=== PATIENT | male | born 1955 | race Caucasian/White ===

== ENCOUNTER 2017-05-11 07:55 | Outpatient (CLI) | payer BC ==
[2017-05-11 12:28] LABS: ALBUMIN/GLOBULIN RATIO 1.9 (1.0-2.2); BUN - BLOOD UREA NITROGEN 27 mg/dL (6-20); CALCIUM 9.9 mg/dL (8.5-10.3); CARBON DIOXIDE - CO2 27 mmol/L (21-32); CHLORIDE 105 mmol/L (101-111); CHOL/HDL RATIO 4.4 (<5.0); CHOLESTEROL 245 mg/dL; CREATININE 1.2 mg/dL (0.6-1.2); GFR - MDRD 61 (>89); GLUCOSE 110 mg/dL (70-100); HDL CHOLESTEROL 56 mg/dL; LDL/HDL RATIO 3.1 (<3.6); POTASSIUM 4.4 mmol/L (3.5-5.0); SODIUM 138 mmol/L (135-145); TOTAL PROTEIN 7.8 g/dL (6.7-8.2); TRIGLYCERIDES 91 mg/dL; VLDL CHOLESTEROL 18 mg/dL
== END 2017-05-11 07:56 | disposition home or self-care (01) ==
LOC: LAB.F 07:55
PROVIDERS: ATTEND Internal Medicine
DX: I10 Essential (primary) hypertension (principal); E78.00 Pure hypercholesterolemia, unspecified
CPT/HCPCS: 36415; 80053; 80061

== ENCOUNTER 2017-06-01 07:53 | Day surgery (SDC) | payer BC ==
[2017-06-01] MEDS ORDERED: LACTATED RINGERS 1,000 ML IV ONE (08:02)
[2017-06-01] MEDS ORDERED: fentaNYL 100 MCG/2 ML VIAL IVP ONE (09:09)
[2017-06-01] MEDS ORDERED: MIDAZOLAM 2 MG/2 ML VIAL IVP ONE (09:09)
[2017-06-01 10:10] VITALS: BP 123/83
== END 2017-06-01 07:54 | disposition home or self-care (01) ==
LOC: SDS 07:53
PROVIDERS: ATTEND Surgery
PROC: 0DJD8ZZ Inspection of Lower Intestinal Tract, Via Natural or Artificial Opening Endoscopic (ICD-10-PCS; principal; 2017-06-01 09:15)
DX: Z12.11 Encounter for screening for malignant neoplasm of colon (principal); K57.30 Diverticulosis of large intestine without perforation or abscess without bleeding; Z86.010 Personal history of colon polyps; Z87.891 Personal history of nicotine dependence; Z88.8 Allergy status to other drugs, medicaments and biological substances
CPT/HCPCS: 45378; J7120

== ENCOUNTER 2017-07-12 09:10 | Outpatient (CLI) | payer BC ==
[2017-07-12 19:08] LABS: CHOL/HDL RATIO 3.6 (<5.0); CHOLESTEROL 190 mg/dL; HDL CHOLESTEROL 53 mg/dL; LDL/HDL RATIO 1.9 (<3.6); TRIGLYCERIDES 170 mg/dL; VLDL CHOLESTEROL 34 mg/dL
== END 2017-07-12 09:11 | disposition home or self-care (01) ==
LOC: LAB.F 09:10
PROVIDERS: ATTEND Internal Medicine
DX: E78.00 Pure hypercholesterolemia, unspecified (principal)
CPT/HCPCS: 36415; 80061

== ENCOUNTER 2018-03-23 07:19 | Outpatient (CLI) | payer BC ==
[2018-03-23 12:02] LABS: BASOPHILS % (AUTO) 0.6 %; EOSINOPHILS # (AUTO) 0.2 10^3/uL (0.0-0.7); HGB - HEMOGLOBIN 14.6 g/dL (14.0-18.0); LYMPHOCYTES # (AUTO) 1.3 10^3/uL (1.5-3.5); LYMPHOCYTES % (AUTO) 21.8 %; MEAN CORPUSCULAR VOLUME 94.2 fL (80.0-94.0); MEAN PLATELET VOLUME 9.6 fL (7.4-11.4); MONOCYTES # (AUTO) 0.6 10^3/uL (0.0-1.0); MONOCYTES % (AUTO) 10.8 %; NEUTROPHILS # (AUTO) 3.7 10^3/uL (1.5-6.6); NEUTROPHILS % (AUTO) 62.8 %; PLT - PLATELET COUNT 186 10^3/uL (130-450); RED BLOOD COUNT 4.57 10^6/uL (4.70-6.10); RED CELL DISTRIBUTION WIDTH 12.9 % (12.0-15.0); WHITE BLOOD COUNT 5.9 x10^3/uL (4.8-10.8)
[2018-03-23 12:06] LABS: ALBUMIN 4.8 g/dL (3.2-5.5); ALKALINE PHOSPHATASE 57 IU/L (42-121); ALT ALANINE AMINOTRANSFERASE 27 IU/L (10-60); AST ASPARTATE AMINOTRANSFERASE 26 IU/L (10-42); BILIRUBIN,TOTAL 1.9 mg/dL (0.2-1.0); BUN - BLOOD UREA NITROGEN 18 mg/dL (6-20); CALCIUM 9.4 mg/dL (8.5-10.3); CARBON DIOXIDE - CO2 21 mmol/L (21-32); CHLORIDE 108 mmol/L (101-111); CHOL/HDL RATIO 3.4 (<5.0); CHOLESTEROL 151 mg/dL; GFR - MDRD 75 (>89); GLUCOSE 111 mg/dL (70-100); HDL CHOLESTEROL 45 mg/dL; LDL CHOLESTEROL,CALCULATED 90 mg/dL; SODIUM 136 mmol/L (135-145); TOTAL PROTEIN 7.2 g/dL (6.7-8.2); VLDL CHOLESTEROL 16 mg/dL
== END 2018-03-23 07:20 | disposition home or self-care (01) ==
LOC: LAB.F 07:19
PROVIDERS: ATTEND Family Medicine
DX: Z00.00 Encounter for general adult medical examination without abnormal findings (principal); I10 Essential (primary) hypertension; E78.00 Pure hypercholesterolemia, unspecified; Z12.5 Encounter for screening for malignant neoplasm of prostate
CPT/HCPCS: 36415; 80053; 80061; 83721; 84153; 84443; 85025

== ENCOUNTER 2018-10-27 06:24 | Day surgery (SDC) | payer BC ==
[2018-10-27] MEDS ORDERED: CYCLOPENTOLATE 1% OPHTH DROPS 2 ML ONE (06:28)
[2018-10-27] MEDS ORDERED: PHENYLEPHRINE 2.5% OPHTH 2 ML DROPS ONE (06:28)
[2018-10-27] MEDS ORDERED: KETOROLAC 0.45% OPHTH DROPS ONE (06:28)
[2018-10-27] MEDS ORDERED: PROPARACAINE 0.5% OPHTH DROPS 15 ML ONE (06:28)
[2018-10-27] MEDS ORDERED: LACTATED RINGERS 500 ML IV ONE (06:51)
[2018-10-27] MEDS ORDERED: PHENYLEPHRINE 2.5% OPHTH 2 ML DROPS LEFTEYE ONE (07:03)
[2018-10-27] MEDS ORDERED: CYCLOPENTOLATE 1% OPHTH DROPS 2 ML LEFTEYE ONE (07:03)
[2018-10-27] MEDS ORDERED: KETOROLAC 0.45% OPHTH DROPS LEFTEYE ONE (07:03)
[2018-10-27] MEDS ORDERED: PROPARACAINE 0.5% OPHTH DROPS 15 ML LEFTEYE ONE ×2 (07:03→08:06)
--- NOTE | 2018-10-27 07:16 | ANESTHESIA ---
Pre-Anesthesia VS, & Labs - Diagnosis Left senile combined cataract - Procedure Left phaco with IOL implant Vital Signs: Temp Pulse Resp BP Pulse Ox 36.0 C L 104 H 18 147/103 H 96 10/27/18 06:51 10/27/18 06:51 10/27/18 06:51 10/27/18 06:51 10/27/18 06:51 Height 6 ft Weight (kg) 115.7 kg - NPO >8 hours Last Fluid Intake: Water at 0530 - Lab Results Lab results reviewed: No Home Medications and Allergies Duloxetine HCl [Cymbalta] 60 mg PO DAILY 05/28/17 Rosuvastatin Calcium [Crestor] 10 mg PO DAILY 05/28/17 Telmisartan 80 mg PO DAILY 05/28/17 Triamcinolone 0.1% Cream [Kenalog 0.1% Cream] 1 applic TOP PRN PRN 05/28/17 amLODIPine [Norvasc] 5 mg PO DAILY 05/28/17 Allergies/Adverse Reactions: Allergies Allergy/AdvReac Type Severity Reaction Status Date / Time lisinopril Allergy Edema Verified 05/28/17 11:41 Anes History & Medical History - Anesthetic History Anesthesia Complications: reports: No previous complications Family history of Anesthesia Complications: Denies Family history of Malignant Hyperthermia: Denies - Medical History Cardiovascular: reports: Hypertension, High cholesterol Pulmonary: reports: None Gastrointestinal: reports: None, Colon polyps Urinary: reports: None Neuro: reports: None Musculoskeletal: reports: Osteoarthritis, Chronic back pain Endocrine/Autoimmune: reports: None Blood Disorders: reports: None Skin: reports: Psoriasis, Rosacea Smoking Status: Never smoker Psychosocial: reports: No issues indicated - Surgical History General: Other Eyes Ears Nose Throat (EENT): Tonsil/Adenoidectomy Cardiothoracic: Other (vein stripping) Orthopedic: Rotator cuff repair, Spine surgery Exam General: Alert Dental: WNL Mouth Opening: Greater than 4 Fingerbreadths Neck Mobility: Normal Mallampati classification: I Thyromental Distance: greater than 6 cm Respiratory: Lungs clear Cardiovascular: Regular rate Neurological: Normal speech Mental/Cognitive Status: Alert/Oriented X3 Cognitive Status: Within normal limits Plan Anesthesia Type: MAC Consent for Procedure(s) Verified and Reviewed: Yes Code Status: Attempt Resuscitation ASA classification: 2-Mild systemic disease Is this case an emergency?: No
[2018-10-27] MEDS ORDERED: TIMOLOL 0.5% OPHTH DROPS OPTH ONE (08:05)
[2018-10-27] MEDS ORDERED: BRIMONIDINE 0.2% OPHTH DROPS 5 ML OPTH ONE (08:05)
[2018-10-27] MEDS ORDERED: CHONDR SULF/HYALURONATE SYRINGE IO ONE (08:05)
[2018-10-27] MEDS ORDERED: EPINEPHrine 1 MG/ML AMP IVP ONE (08:05)
[2018-10-27] MEDS ORDERED: BSS/LIDOCAINE/EPINEPHRINE 1 ML SYRINGE IO ONE ×2 (08:06)
[2018-10-27] MEDS ORDERED: TRIAMCIN/MOXIFLOX OPHTHALMIC 0.6 ML VIAL IO ONE ×2 (08:06)
[2018-10-27] MEDS ORDERED: VANCOMYCIN OPHTHALMI 8MG/0.8ML 8 MG/0.8 ML SYRINGE IO ONE (08:06)
[2018-10-27] MEDS ORDERED: fentaNYL 100 MCG/2 ML VIAL IVP ONE (08:19)
[2018-10-27] MEDS ORDERED: MIDAZOLAM 2 MG/2 ML VIAL IVP ONE (08:19)
[2018-10-27 08:27] VITALS: BP 129/75
--- NOTE | 2018-10-27 12:45 | OPERATIVE REPORT ---
DATE OF SERVICE: 10/27/2018 Physician: Ta Melchor MD PREOPERATIVE DIAGNOSIS: Visually significant cataract, left eye. This was his first cataract surgery. POSTOPERATIVE DIAGNOSIS: Visually significant cataract, left eye. This was his first cataract surgery. NAME OF PROCEDURE: Phacoemulsification with posterior chamber intraocular lens implant, left eye. SURGEON: Dr. Ta Melchor. ANESTHESIA: Monitored anesthesia care. COMPLICATIONS: None. OPERATIVE INDICATIONS: This 63-year-old man with progressive vision loss in the left eye due to 3+ nuclear sclerotic and 2+ posterior subcapsular cataract. Best corrected visual acuity was 20/60 with glare to 20/400. However, he also has vitreomacular traction with cystic edema that will possibly require further treatment in the future. He was consented at length concerning risks and benefits of cataract surgery, after which he expressed a desire to proceed with surgery. INDICATIONS FOR SURGERY: Overall decrease in vision, difficulty seeing words, closed caption or game scores on TV, difficulty driving in low light or at night, difficulty driving at night because of headlights from other vehicles and/or street lights, difficulty with glare or bright lights in any situation and decreased acuity with firearms. OPERATIVE PROCEDURE: The patient was taken in OR #3 and placed under monitored anesthesia care. A surgical timeout was conducted confirming correct patient, correct procedure, and correct surgical site. He was given topical anesthesia and prepped and draped in the usual sterile fashion. The eye was entered at the 6 and 3 o'clock positions. Intracameral Shugarcaine was injected into the anterior chamber, followed by Viscoat. A continuous tear curvilinear capsulorrhexis was performed. The nucleus was hydrodissected and phacoemulsified. The cortex was evacuated using automated infusion and aspiration. Provisc was injected in the capsular bag, and a 19.5 diopter intraocular lens inserted in the bag. Approximately 0.8 mL of a mixture of triamcinolone, moxifloxacin, and vancomycin was injected subconjunctivally in the superior quadrant for infection and inflammation prophylaxis. I and A was used to evacuate the viscoelastic materials. The eye was inflated to physiologic pressure using balanced salt solution and found to be watertight. The patient was taken from the operating room in good condition and given postop instructions. TD: 10/27/2018 08:32 GERMAIN
== END 2018-10-27 06:25 | disposition home or self-care (01) ==
LOC: SDS 06:24
PROVIDERS: ATTEND Ophthalmology
PROC: 08RK3JZ Replacement of Left Lens with Synthetic Substitute, Percutaneous Approach (ICD-10-PCS; principal; 2018-10-27 08:00)
DX: H25.812 Combined forms of age-related cataract, left eye (principal); H43.822 Vitreomacular adhesion, left eye; I10 Essential (primary) hypertension
CPT/HCPCS: 66984; A9270; J3490; V2632

== ENCOUNTER 2019-04-24 08:05 | Outpatient (CLI) | payer BC ==
[2019-04-24 11:05] LABS: ALBUMIN 4.7 g/dL (3.2-5.5); ALBUMIN/GLOBULIN RATIO 1.5 (1.0-2.2); ALKALINE PHOSPHATASE 69 IU/L (42-121); ALT ALANINE AMINOTRANSFERASE 29 IU/L (10-60); AST ASPARTATE AMINOTRANSFERASE 37 IU/L (10-42); BILIRUBIN,TOTAL 2.3 mg/dL (0.2-1.0); BUN - BLOOD UREA NITROGEN 22 mg/dL (6-20); CALCIUM 9.8 mg/dL (8.5-10.3); CARBON DIOXIDE - CO2 22 mmol/L (21-32); CHLORIDE 105 mmol/L (101-111); CHOL/HDL RATIO 4.1 (<5.0); CHOLESTEROL 204 mg/dL; CREATININE 1.2 mg/dL (0.6-1.2); GFR - MDRD 61 (>89); GLUCOSE 104 mg/dL (70-100); HDL CHOLESTEROL 50 mg/dL; LDL CHOLESTEROL,CALCULATED 119 mg/dL; LDL/HDL RATIO 2.4 (<3.6); SODIUM 138 mmol/L (135-145); TOTAL PROTEIN 7.9 g/dL (6.7-8.2); VLDL CHOLESTEROL 35 mg/dL
[2019-04-24 11:06] LABS: BASOPHILS # (AUTO) 0.1 10^3/uL (0.0-0.1); BASOPHILS % (AUTO) 0.7 %; EOSINOPHILS # (AUTO) 0.2 10^3/uL (0.0-0.7); EOSINOPHILS % (AUTO) 2.9 %; HGB - HEMOGLOBIN 14.8 g/dL (14.0-18.0); LYMPHOCYTES # (AUTO) 1.1 10^3/uL (1.5-3.5); LYMPHOCYTES % (AUTO) 14.9 %; MEAN CORPUSCULAR HEMOGLOBIN 31.8 pg (27.0-31.0); MEAN CORPUSCULAR HGB CONC 33.4 g/dL (32.0-36.0); MEAN CORPUSCULAR VOLUME 95.1 fL (80.0-94.0); MEAN PLATELET VOLUME 9.6 fL (7.4-11.4); MONOCYTES # (AUTO) 0.6 10^3/uL (0.0-1.0); MONOCYTES % (AUTO) 8.5 %; NEUTROPHILS # (AUTO) 5.4 10^3/uL (1.5-6.6); PLT - PLATELET COUNT 198 10^3/uL (130-450); RED BLOOD COUNT 4.67 10^6/uL (4.70-6.10); RED CELL DISTRIBUTION WIDTH 13.4 % (12.0-15.0); WHITE BLOOD COUNT 7.4 x10^3/uL (4.8-10.8)
== END 2019-04-24 08:06 | disposition home or self-care (01) ==
LOC: LAB.F 08:05
PROVIDERS: ATTEND Physician Assistant Medical
DX: I10 Essential (primary) hypertension (principal); E78.00 Pure hypercholesterolemia, unspecified; Z12.5 Encounter for screening for malignant neoplasm of prostate
CPT/HCPCS: 36415; 80053; 80061; 83721; 84153; 85025

== ENCOUNTER 2020-07-05 08:07 | Outpatient (CLI) | payer MEDICARE, OTHER ==
[2020-07-05 08:21] LABS: BASOPHILS # (AUTO) 0.1 10^3/uL (0.0-0.1); BASOPHILS % (AUTO) 0.6 %; EOSINOPHILS # (AUTO) 0.6 10^3/uL (0.0-0.7); EOSINOPHILS % (AUTO) 7.5 %; HGB - HEMOGLOBIN 15.2 g/dL (14.0-18.0); LYMPHOCYTES # (AUTO) 1.7 10^3/uL (1.5-3.5); LYMPHOCYTES % (AUTO) 22.4 %; MEAN CORPUSCULAR HEMOGLOBIN 32.2 pg (27.0-31.0); MEAN CORPUSCULAR HGB CONC 34.2 g/dL (32.0-36.0); MEAN CORPUSCULAR VOLUME 94.1 fL (80.0-94.0); MEAN PLATELET VOLUME 10.3 fL (7.4-11.4); MONOCYTES # (AUTO) 0.7 10^3/uL (0.0-1.0); MONOCYTES % (AUTO) 9.6 %; NEUTROPHILS # (AUTO) 4.6 10^3/uL (1.5-6.6); NEUTROPHILS % (AUTO) 59.5 %; PLT - PLATELET COUNT 229 10^3/uL (130-450); RED BLOOD COUNT 4.72 10^6/uL (4.70-6.10); RED CELL DISTRIBUTION WIDTH 12.5 % (12.0-15.0); WHITE BLOOD COUNT 7.7 x10^3/uL (4.8-10.8)
[2020-07-05 08:49] LABS: ALBUMIN 4.9 g/dL (3.2-5.5); ALBUMIN/GLOBULIN RATIO 1.6 (1.0-2.2); ALKALINE PHOSPHATASE 69 IU/L (42-121); ALT ALANINE AMINOTRANSFERASE 26 IU/L (10-60); AST ASPARTATE AMINOTRANSFERASE 32 IU/L (10-42); BILIRUBIN,TOTAL 2.2 mg/dL (0.2-1.0); BUN - BLOOD UREA NITROGEN 19 mg/dL (6-20); CARBON DIOXIDE - CO2 24 mmol/L (21-32); CHLORIDE 101 mmol/L (101-111); CHOL/HDL RATIO 4.8 (<5.0); CHOLESTEROL 236 mg/dL; CREATININE 1.3 mg/dL (0.6-1.2); GLUCOSE 108 mg/dL (70-100); HDL CHOLESTEROL 49 mg/dL; LDL CHOLESTEROL,CALCULATED 157 mg/dL; LDL/HDL RATIO 3.2 (<3.6); SODIUM 136 mmol/L (135-145); TOTAL PROTEIN 7.9 g/dL (6.7-8.2); VLDL CHOLESTEROL 30 mg/dL
== END 2020-07-05 08:08 | disposition home or self-care (01) ==
LOC: LAB 08:07
PROVIDERS: ATTEND Physician Assistant
DX: Z00.00 Encounter for general adult medical examination without abnormal findings (principal); R73.01 Impaired fasting glucose; E78.00 Pure hypercholesterolemia, unspecified; E66.9 Obesity, unspecified; I10 Essential (primary) hypertension
CPT/HCPCS: 36415; 80053; 80061; 84443; 85025; G0103; 83721; 84153

== ENCOUNTER 2020-11-13 04:34 | Emergency (ER) | payer MEDICARE, OTHER ==
[2020-11-13] MEDS ORDERED: SODIUM CHLORIDE 0.9% 1,000 ML IV STA (05:11)
[2020-11-13] MEDS ORDERED: ONDANSETRON 4 MG/2 ML VIAL IVP STA (05:11)
[2020-11-13] MEDS ORDERED: HYDROmorphone 1 MG/ML CARPUJECT IVP STA (05:11)
[2020-11-13 05:28] LABS: BILIRUBIN,URINE NEGATIVE (NEGATIVE); GLUCOSE, URINE (UA) NEGATIVE (NEGATIVE); KETONES,URINE (UA) 15 mg/dL (NEGATIVE); LEUKOCYTE ESTERASE, URINE NEGATIVE (NEGATIVE); NITRITE,URINE NEGATIVE (NEGATIVE); OCCULT BLOOD,URINE NEGATIVE (NEGATIVE); PH,URINE 6.5 PH (5.0-7.5); PROTEIN,URINE >=300 mg/dL (NEGATIVE); UROBILINOGEN,URINE 0.2 (NORMAL) E.U./dL (NORMAL)
[2020-11-13 05:29] LABS: CLARITY,URINE CLEAR (CLEAR)
[2020-11-13 05:37] LABS: BACTERIA,URINE None Seen /HPF (None Seen); RBC,URINE None Seen /HPF (0-5); SQUAMOUS EPITHELIAL CELL,UR RARE Squamous (<= Few)
[2020-11-13 05:51] LABS: BASOPHILS % (AUTO) 0.3 %; EOSINOPHILS # (AUTO) 0.1 10^3/uL (0.0-0.7); EOSINOPHILS % (AUTO) 0.5 %; HGB - HEMOGLOBIN 14.4 g/dL (14.0-18.0); LYMPHOCYTES # (AUTO) 0.8 10^3/uL (1.5-3.5); LYMPHOCYTES % (AUTO) 6.2 %; MEAN CORPUSCULAR HEMOGLOBIN 30.8 pg (27.0-31.0); MEAN CORPUSCULAR HGB CONC 33.1 g/dL (32.0-36.0); MEAN CORPUSCULAR VOLUME 92.9 fL (80.0-94.0); MEAN PLATELET VOLUME 10.5 fL (7.4-11.4); MONOCYTES # (AUTO) 1.3 10^3/uL (0.0-1.0); MONOCYTES % (AUTO) 10.3 %; NEUTROPHILS # (AUTO) 10.1 10^3/uL (1.5-6.6); NEUTROPHILS % (AUTO) 82.3 %; PLT - PLATELET COUNT 228 10^3/uL (130-450); RED BLOOD COUNT 4.68 10^6/uL (4.70-6.10); RED CELL DISTRIBUTION WIDTH 13.3 % (12.0-15.0); WHITE BLOOD COUNT 12.3 x10^3/uL (4.8-10.8)
[2020-11-13] MEDS ORDERED: IOVERSOL 320 100 ML VIAL IVP ONE ×2 (05:54→06:49)
[2020-11-13 06:16] LABS: ALBUMIN 4.4 g/dL (3.2-5.5); ALBUMIN/GLOBULIN RATIO 1.3 (1.0-2.2); BILIRUBIN,TOTAL 2.9 mg/dL (0.2-1.0); CALCIUM 10.5 mg/dL (8.5-10.3); CREATININE 1.2 mg/dL (0.6-1.2); TOTAL PROTEIN 7.8 g/dL (6.7-8.2)
--- NOTE | 2020-11-13 06:19 | ED Physician Documentation ---
History of Present Illness - Stated complaint Stated Complaint: ABD PX - Chief complaint Chief Complaint: Abd Pain - History obtained from History obtained from: Patient - Additonal information Additional information: Patient comes emergency department chief complaint of abdominal pain, bloating, and nausea for the last 3 days. Patient states that he noticed the symptoms come up over the course of the day and that they have not gotten any better since. He states that when he eats he feels very bloated. He has been burping and also passing gas, and he has been able to have bowel movements although his last one was 24 hours ago. The patient has not had any abdominal surgeries abdominal conditions. He states that this is never happened to him before. He does take Prilosec but has never been known to have an ulcer. No other complaints at this time. Review of Systems Ten Systems: 10 systems reviewed and negative Constitutional: reports: Reviewed and negative. denies: Fever, Chills Eyes: reports: Reviewed and negative Ears: reports: Reviewed and negative Nose: reports: Reviewed and negative Throat: reports: Reviewed and negative Cardiac: reports: Reviewed and negative Respiratory: reports: Reviewed and negative GI: reports: Abdominal Pain, Nausea. denies: Constipation, Diarrhea : reports: Reviewed and negative Skin: reports: Reviewed and negative Musculoskeletal: reports: Reviewed and negative Neurologic: reports: Reviewed and negative Psychiatric: reports: Reviewed and negative Endocrine: reports: Reviewed and negative Immunocompromised: reports: Reviewed and negative PD PAST MEDICAL HISTORY - Past Medical History Past Medical History: Yes Cardiovascular: Hypertension, High cholesterol Respiratory: None Neuro: None Endocrine/Autoimmune: None GI: None, Colon polyps : None HEENT: None Psych: None Musculoskeletal: Osteoarthritis, Chronic back pain Derm: Psoriasis, Rosacea - Past Surgical History General: Other Ortho: Rotator cuff repair, Spine surgery Cardiovascular: Other HEENT: Tonsil/Adenoidectomy - Present Medications Home Medications: Ambulatory Orders Medication Instructions Recorded Confirmed amLODIPine [Norvasc] 10 mg PO DAILY 05/28/17 10/26/18 Hydrochlorothiazide 11/13/20 Losartan [Cozaar] 11/13/20 Ondansetron Odt [Zofran] 4 mg TL Q6H PRN #10 tablet 11/13/20 Oxycodone HCl/Acetaminophen 1 - 2 each PO Q6H PRN #14 tablet 11/13/20 [Percocet 5-325 mg Tablet] - Allergies Allergies/Adverse Reactions: Allergies Allergy/AdvReac Type Severity Reaction Status Date / Time lisinopril Allergy Edema Verified 11/13/20 04:48 - Social History Does the pt smoke?: No Smoking Status: Never smoker PD ED PE NORMAL - Vitals Vital signs reviewed: Yes - General General: Alert and oriented X 3, No acute distress - HEENT HEENT: Atraumatic, PERRL, EOMI, Moist mucous membranes - Neck Neck: Supple, no meningeal sign - Cardiac Cardiac: RRR, No murmur - Respiratory Respiratory: No respiratory distress, Clear bilaterally - Abdomen Abdomen: Soft, Other (Moderate tenderness without rebound or guarding involving the epigastrium as well as adjacent portions of the right and left upper quadrants. Moderate distention.) - Back Back: No CVA TTP, No spinal TTP - Derm Derm: Normal color, Warm and dry, No rash - Extremities Extremities: No deformity, No edema, No calf tenderness / cord - Neuro Neuro: Alert and oriented X 3 - Psych Psych: Normal mood, Normal affect Results - Vitals Vitals: Vital Signs - 24 hr 11/13/20 11/13/20 11/13/20 04:45 04:59 06:55 Temperature 36.6 C 36.6 C Heart Rate 89 89 88 Respiratory 17 17 15 Rate Blood Pressure 126/84 H 126/84 H 134/92 H O2 Saturation 94 97 95 11/13/20 11/13/20 07:33 08:42 Temperature 37 C Heart Rate 93 94 Respiratory 16 14 Rate Blood Pressure 136/90 H 136/97 H O2 Saturation 97 98 Oxygen O2 Source Room air - Labs Labs: Laboratory Tests 11/13/20 11/13/20 11/13/20 05:00 05:35 05:35 WBC 12.3 H RBC 4.68 L Hgb 14.4 Hct 43.5 MCV 92.9 MCH 30.8 MCHC 33.1 RDW 13.3 Plt Count 228 MPV 10.5 Neut # (Auto) 10.1 H Lymph # (Auto) 0.8 L Steele # (Auto) 1.3 H Eos # (Auto) 0.1 Baso # (Auto) 0.0 Absolute Nucleated RBC 0.00 Nucleated RBC % 0.0 Sodium 136 Potassium 3.6 Chloride 102 Carbon Dioxide 21 Anion Gap 13.0 BUN 17 Creatinine 1.2 Estimated GFR (MDRD) 61 L Glucose 140 H Calcium 10.5 H Total Bilirubin 2.9 H AST 24 ALT 25 Alkaline Phosphatase 79 Troponin I High Sens Total Protein 7.8 Albumin 4.4 Globulin 3.4 Albumin/Globulin Ratio 1.3 Lipase 21 L Urine Color YELLOW Urine Clarity CLEAR Urine pH 6.5 Ur Specific [place] 1.025 Urine Protein >=300 H Urine Glucose (UA) NEGATIVE Urine Ketones 15 H Urine Occult Blood NEGATIVE Urine Nitrite NEGATIVE Urine Bilirubin NEGATIVE Urine Urobilinogen 0.2 (NORMAL) Ur Leukocyte Esterase NEGATIVE Urine RBC None Seen Urine WBC 0-3 Ur Squamous Epith Cells RARE Squamous Urine Bacteria None Seen Ur Microscopic Review INDICATED Urine Culture Comments NOT INDICATED 11/13/20 05:45 WBC RBC Hgb Hct MCV MCH MCHC RDW Plt Count MPV Neut # (Auto) Lymph # (Auto) Steele # (Auto) Eos # (Auto) Baso # (Auto) Absolute Nucleated RBC Nucleated RBC % Sodium Potassium Chloride Carbon Dioxide Anion Gap BUN Creatinine Estimated GFR (MDRD) Glucose Calcium Total Bilirubin AST ALT Alkaline Phosphatase Troponin I High Sens 4.8 Total Protein Albumin Globulin Albumin/Globulin Ratio Lipase Urine Color Urine Clarity Urine pH Ur Specific [place] Urine Protein Urine Glucose (UA) Urine Ketones Urine Occult Blood Urine Nitrite Urine Bilirubin Urine Urobilinogen Ur Leukocyte Esterase Urine RBC Urine WBC Ur Squamous Epith Cells Urine Bacteria Ur Microscopic Review Urine Culture Comments PD MEDICAL DECISION MAKING - ED course Complexity details: reviewed results, re-evaluated patient, considered differential, d/w patient ED course: The patient was worked up with labs, which showed a mild leukocytosis and an elevated bilirubin at 2.9. CT of the abdomen and pelvis with IV contrast was performed. Patient was also treated symptomatically with IV Dilaudid, Zofran, and fluids. He was awaiting troponin and final CT results at change of shift, and was signed out in stable condition to Dr. Eubanks, the on-coming emergency physician. Departure - Departure Disposition: 01 Home, Self Care Clinical Impression: Pancreatic cancer Condition: Stable Instructions: Cancer Pancreatic Follow-Up: [facility] [Provider Group] Prescriptions: Oxycodone HCl/Acetaminophen [Percocet 5-325 mg Tablet] 1 - 2 each PO Q6H PRN #14 tablet PRN Reason: pain Ondansetron Odt [Zofran] 4 mg TL Q6H PRN #10 tablet PRN Reason: Nausea / Vomiting Comments: Today in the emergency department the CT scan done demonstrates what appears to be pancreatic cancer with metastasis. I have reached out to [facility] and I was only able to leave a voicemail asking for an appointment urgently. I have given them your telephone number and my telephone number. They should reach out to us today by 3 PM. If you do not hear from them they are direct number to the cancer center is [phone]. Today we will provide you with pain medication and antinausea medicine. Reasons to return to the emergency department here are for signs of bowel obstruction which are vomiting and not able to pass gas and bloating of the abdomen. A second obstruction is biliary obstruction which will cause jaundice and usually not with pain or bloating. This is a slower process but will still need an intervention that is done at another hospital. Discharge Date/Time: 11/13/20 09:12
--- NOTE | 2020-11-13 08:25 | CT Report ---
PROCEDURE: Abdomen/Pelvis W INDICATIONS: abdominal pain, nausea x 3 days CONTRAST: IV CONTRAST: Optiray 320 ml: 100 PO CONTRAST: *NO PO CONTRAST TECHNIQUE: After the administration of IV contrast, 5 mm thick sections acquired from the diaphragms to the symp hysis. 5 mm thick coronal and sagittal reformats were acquired. For radiation dose reduction, the f ollowing was used: automated exposure control, adjustment of mA and/or kV according to patient size. COMPARISON: None. FINDINGS: Image quality: Excellent. ABDOMEN: Lung bases: Interstitial reticular thickening in periphery of bilateral lung bases are seen concernin g for mild subpleural fibrosis. 3.5 x 1.3 cm solid nodule is seen in anterior aspect of costophrenic space. There is adjacent 1.8 x 1.7 cm soft tissue density nodule in the same region just to right of midline series 3 image 12.. 1 x 0.8 cm nodule is seen further to the right series 3 image 13. Heart s ize is normal. Solid organs: Liver is normal in size. Multiple ill-defined hypodense lesions are seen scattered in l iver parenchyma and measures up to 9.7 x 8.6 cm in size occupying left hepatic dome. Gallbladder is w ithin normal limits. Spleen is normal in size and enhancement. Ill-defined hypodense mass within prather creatic head and neck is seen with adjacent peripancreatic fat stranding and dilatation of distal com mon bile the measures up to 2.2 cm in diameter with dense intraluminal debris. Mild intrahepatic bili carrillo ductal dilatation is also noted. Kidneys demonstrate normal size and enhancement, without hydrone phrosis. Bilateral renal cysts are seen. Tiny nonobstructing right renal calculus is noted in lower pole. No perinephric fat stranding. Peritoneum and bowel: Bowel loops demonstrate normal wall thickness and caliber. No free fluid or a ir. Appendix is visualized and is within normal limits. Mild inflammation within second portion of d uodenum most likely represent reactive changes from process within the pancreatic head and neck regio n. Nodes and vessels: Multiple enlarged nodes are seen along celiac axis and along the left retroperiton eum to the level of left renal vessels. Aorta and inferior vena cava are normal in size. Miscellaneous: No ventral hernias. PELVIS: Genitourinary: Bladder wall thickness is normal. Miscellaneous: No inguinal adenopathy. Small right inguinal hernia containing fat only. Surgical cli ps are noted in left groin.. Bones: No suspicious bony lesions. No vertebral body compression fractures. Degenerative disc dise ase throughout lower thoracic and lumbar spine is seen. IMPRESSION: 1. Hypodense mass involving head and neck of pancreas with extensive adjacent lymphadenopathy highly concerning for malignant neoplasm. 2. Mild intrahepatic biliary ductal dilatation and suggestion of distal common bile the obstruction a nd dilatation from above-mentioned pancreatic head mass as above. 3. Retroperitoneal, periportal, mesenteric and cardiophrenic lymphadenopathy as described above flor rning for metastatic lymph nodes. 4. Hypodense areas scattered in liver parenchyma concerning for metastatic disease. 5. No bowel obstruction. Normal appendix. Colonic diverticulosis without evidence of acute diverticul itis. No free fluid or free air. 6. Nonobstructing right renal calculus. No hydronephrosis. Bilateral renal cysts. 7. Interstitial reticular thickening in periphery of bilateral lung bases concerning for developing p ulmonary fibrosis. No significant discrepancies from pulmonary reading. Reviewed by: Jose Holm MD on 11/13/2020 8:24 AM PST Approved by: Jose Holm MD on 11/13/2020 8:24 AM PST Station ID: [id number]
--- NOTE | 2020-11-13 08:35 | ED Physician Documentation ---
ED Addendum - Addendum Addendum: 11/13/20 08:26 Previous well well 65-year-old male with no prior abdominal surgical history has developed abdominal bloating and a decreased appetite epigastric pain over the past 3 days. He is still able to eat he is passing gas and has had a bowel movement yesterday he is not vomiting and here today in the emergency department a CT scan of the abdomen pelvis has been obtained demonstrating what appears to be advanced pancreatic cancer. He does not appear to have mets to the liver and lung and his bilirubin is 2.5. The reading on the CT scan of the abdomen pelvis with contrast is as follows. Impression: 1. Hypodense mass in the head of pancreas with adjacent lymphadenopathy highly concerning for neoplastic process. This may be further evaluated by MRI or PET CT. 2. Biliary obstruction of the common bile duct secondary to mass-effect from the pancreatic head mass. Mild intrahepatic ductal dilation. 3. Retroperitoneal, periportal, mesenteric and cardiophrenic lymphadenopathy most likely representing metastatic disease. 4. Nonobstructing right nephrolithiasis. 5. Colonic diverticulosis. 6. Prominence of the pulmonary interstitium with groundglass opacity at the lung bases bilaterally differential considerations include pulmonary edema, pneumonia, metastatic disease. 7. Spondylolysis within the lumbar spine. Extensive endplate sclerosis and vacuum phenomena at L2-L3 likely degenerative in nature. Discitis can have this appearance in the appropriate clinical setting. The patient has been given intravenous fluid pain medication and antinausea. He feels improved but he does have evidence of biliary obstruction and some inflammation to the jejunum likely representing where he had distention of his abdomen. This now appears to have been resolved and I believe the patient will need to be seen urgently within the next week. I have reached out to [facility] to attempt to get an appointment for the patient and they will call the patient. 11/13/20 09:22 11/13/20 09:23 Electrocardiogram obtained at 04 54 shows a heart rate of 115 as a sinus tachycardia and there is some ST depression in V2 through 5. There is no prior tracing for comparison.
[2020-11-13 08:43] VITALS: BP 136/97
== END 2020-11-13 09:12 | disposition home or self-care (01) ==
LOC: ED 04:34
DX: C25.0 Malignant neoplasm of head of pancreas (principal); K86.81 Exocrine pancreatic insufficiency; I10 Essential (primary) hypertension
CPT/HCPCS: 36415; 74177; 80053; 81001; 83690; 84484; 85025; 93005; 96361; 96374; 96375; 99284; J1170; Q9967; 81003; 87086

== ENCOUNTER 2020-12-04 08:00 | Outpatient (CLI) | payer MEDICARE, OTHER ==
[2020-12-04 14:41] LABS: C. PNEUMONIAE- RESP PCR PANEL NOT DETECTED
== END 2020-12-04 23:59 | disposition home or self-care (01) ==
LOC: LAB.R 08:00
PROVIDERS: ATTEND Physician Assistant
DX: Z01.812 Encounter for preprocedural laboratory examination (principal); C25.9 Malignant neoplasm of pancreas, unspecified; Z20.822 Contact with and (suspected) exposure to COVID-19
CPT/HCPCS: 0202U

== ENCOUNTER 2020-12-05 07:56 | Day surgery (SDC) | payer MEDICARE, OTHER ==
[2020-12-05] MEDS ORDERED: LACTATED RINGERS 1,000 ML IV ONE ×2 (09:50→12:27)
[2020-12-05] MEDS ORDERED: ceFAZolin 2 GM/50 ML 2 GM/50 ML BAG IV ONE (09:53)
[2020-12-05] MEDS ORDERED: HEPARIN 5,000 UNIT/ML VIAL ONE (09:53)
--- NOTE | 2020-12-05 10:02 | ANESTHESIA ---
Pre-Anesthesia VS, & Labs - Diagnosis Suspected pancreatic cancer - Procedure Port-a-cath placement Height: 6 ft - NPO >8 hours - Lab Results Lab results reviewed: Yes Home Medications and Allergies Home Medications: Ambulatory Orders Duloxetine HCl [Cymbalta] 60 mg PO DAILY 12/02/20 Oxycodone HCl [Oxaydo] 5 mg PO Q4HR 12/02/20 Rosuvastatin Calcium [Crestor] 10 mg PO DAILY 12/02/20 amLODIPine [Norvasc] 10 mg PO BID 05/28/17 Hydrochlorothiazide 12.5 mg PO DAILY 11/13/20 Losartan [Cozaar] 50 mg PO DAILY 11/13/20 Duloxetine HCl [Cymbalta] 60 mg PO DAILY 12/02/20 Oxycodone HCl [Oxaydo] 5 mg PO Q4HR 12/02/20 Rosuvastatin Calcium [Crestor] 10 mg PO DAILY 12/02/20 Allergies/Adverse Reactions: Allergies Allergy/AdvReac Type Severity Reaction Status Date / Time lisinopril Allergy Edema Verified 11/13/20 04:48 Anes History & Medical History - Anesthetic History Anesthesia Complications: reports: No previous complications Family history of Anesthesia Complications: Denies Family history of Malignant Hyperthermia: Denies - Medical History Cardiovascular: reports: Hypertension, High cholesterol Pulmonary: reports: None Gastrointestinal: reports: Colon polyps, Other Urinary: reports: None Neuro: reports: None Musculoskeletal: reports: Osteoarthritis, Chronic back pain Endocrine/Autoimmune: reports: None Blood Disorders: reports: None Skin: reports: Psoriasis, Rosacea Smoking Status: Never smoker Psychosocial: reports: Cannabis History of Cancer?: Yes (suspected pancreatic w/mets) - Surgical History General: Colonoscopy, EGD, Other Eyes Ears Nose Throat (EENT): Tonsil/Adenoidectomy Cardiothoracic: Other Orthopedic: Rotator cuff repair, Spine surgery Exam General: Alert, Oriented x3, Cooperative Dental: WNL Mouth Opening: Greater than 4 Fingerbreadths Neck Mobility: Normal Mallampati classification: II Thyromental Distance: greater than 6 cm Respiratory: Lungs clear, Normal breath sounds, No respiratory distress Cardiovascular: Regular rate Neurological: Normal speech Mental/Cognitive Status: Alert/Oriented X3, Normal for patient Cognitive Status: Within normal limits, Not applicable Plan Anesthesia Type: MAC Consent for Procedure(s) Verified and Reviewed: Yes Code Status: Attempt Resuscitation ASA classification: 3-Severe systemic disease Is this case an emergency?: No
[2020-12-05] MEDS ORDERED: PROPOFOL 500 MG/50 ML 500 MG/50 ML VIAL ONE (10:25)
[2020-12-05] MEDS ORDERED: MIDAZOLAM 2 MG/2 ML VIAL ONE (10:26)
[2020-12-05] MEDS ORDERED: KETAMINE 500 MG/10 ML VIAL ONE (10:26)
[2020-12-05] MEDS ORDERED: LIDOCAINE 1% 50 ML MDV ONE (11:05)
[2020-12-05] MEDS ORDERED: BUPIVACAINE 0.5% PF 30 ML VIAL ONE (11:09)
[2020-12-05] MEDS ORDERED: BUPIVACAINE 0.5% PF 30 ML VIAL INFIL ONE ×2 (11:42)
[2020-12-05] MEDS ORDERED: LIDOCAINE 1% 50 ML MDV SUBQ ONE ×2 (11:43)
[2020-12-05 12:28] VITALS: BP 119/70
[2020-12-05] MEDS ORDERED: ONDANSETRON 4 MG/2 ML VIAL IVP PRN (12:37)
[2020-12-05] MEDS ORDERED: oxyCODONE 5 MG TABLET PO PRN (12:37)
--- NOTE | 2020-12-05 12:44 | OPERATIVE REPORT ---
Operative Report - General Procedure Date: 12/05/20 Planned Procedure: 1. Left internal jugular ultrasound-guided venous access 2. Fluoroscopic assisted Mediport placement to the atrial caval junction 3. 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 Left internal jugular ultrasound-guided venous access 2. Fluoroscopic assisted Mediport placement to the atrial caval junction 3. Left chest Mediport placement Post Op Diagnosis: Same - Procedure Note Primary Surgeon: Dawna Secondary Surgeon: Pavithra Anesthesia Provider: Kaerem Estimated Blood Loss (mL): 30 Indications: See EMR Findings: 1. Left internal jugular vein noted ultrasonographically accessed without complication with wire noted intravascular 2. Successful fluoroscopic guided placement of catheter to the atriocaval junction tortuous cava appreciated 3. Easily flushed and aspirated port; wound hemostatic. Complications: None - Other Other Information/Narrative: INTRAOPERATIVE FINDINGS: Left internal jugular was noted ultrasonographically. It was passed for the guidewire without any complication, which was confirmed by fluoroscopic imaging. The catheter ultimately was placed at the junction between the SVC and the atria of the atriocaval junction without any complication. Postoperative x-ray confirmed placement. Patient tolerated the procedure well for which there was no complication. The port flushed easily, it aspirated well, heparin-saline as port lock. PROCEDURAL REPORT: Left internal jugular ultrasound-guided fluoroscopically assisted Mediport placement for intra-abdominal malignancy. The patient was prepped for his Left neck and chest in the usual sterile fashion. Time out was called and agreed to by all in the room. The ultrasound probe was draped with a sterile sleeve, and internal jugular was noted. The mira ent was placed in Trendelenburg, and the vein was cannulated using the introducer needle without any complication. There was venous return. The wire was easily passed through the introducer needle without any complication. The wire placement was confirmed at the atriocaval junction by fluoroscopic guidance. At this time, the wire was secured after the needle was removed, and we proceeded to create a pocket for the Port central venous access device. A small incision approximately 3-4 cm was made in the Left upper chest, approximately 4 cm below the clavicle. This was first initially instilled with 0.5% Marcaine and incised sharply using a scalpel. The subcutaneous tissues were divided using Bovie electrocautery, and using skin rakes and a Luci retractor, a pocket was made appropriate in subcutaneous fat in order to accommodate the low- profile Port. Once this was completed, the tunneler was used to access the left internal jugular access site after the skin surrounding the wire was incised using an 11 blade. The tunneler was then attached to the catheter, which had been flushed and brought through the subcutaneous tract, which was also instilled with 0.5% Marcaine before proceeding. Once this was completed, the introducer sheath was passed over the wire, and this was confirmed for placement fluoroscopically. With this in place, we thereafter removed both the wire and the introducer, and once this was completed, we threaded the catheter with a syringe attached to the other end into the break away sheath. Once passed completely, the sheath was broken while keeping the catheter in place, and the sheath was removed. Fluoroscopic guidance was used to confirm placement at the level of the atriocaval junction, and with this completed, we reduced the loop at the left neck incision, and the catheter remained in the subcutaneous fat. The catheter was aspirated of venous blood and easily flushed using heparinized saline. Once this was completed, the catheter was cut to length appropriately for the low-profile Port, and the hub was placed over the catheter, which was kept clamped with finger pressure to prevent air embolism and at this time was inserted into the Port device. This was in turn secured using the collar. The Port was thereafter placed into the subcutaneous pocket and through eyelets, it was secured in place with 2-0 Prolene stitches into the chest wall. This was secured bilaterally and also at the level of the collar and through the superior eyelet as well. At this time, we tested the port through the skin to assure that it flushed and aspirated well, and this was confirmed using heparinized saline. At this time, we closed the wounds in layers, after extensive irrigation, first reapproximating the deep subcutaneous fat, then approximating the skin with a deep dermal stitch, and thereafter ran a subcuticular using 4-0 Monocryl. This was done both at the port insertion site in the left chest and at the access site in the neck, both sites dressed with Dermabond. The patient tolerated the procedure well for which there was no complication. The patient was taken to the recovery room in stable condition. All counts for sponges, needles, instruments were correct at the conclusion of this operative intervention. Post-op XR was reviewed without any deviation. Please note that voice recognition software was used to transcribe this note and inadvertent errors might persist in spite of review and editing. I am obliged to you for your attention. I am thankful to you for allowing me to participate with you in this care of this patient.
--- NOTE | 2020-12-05 13:10 | ANESTHESIA POST OP EVALUATION ---
Anesthesia Post Eval - Post Anesthesia Eval Vitals: Last Vital Signs Temp 36.6 C 12/05/20 12:21 Pulse 80 12/05/20 12:21 Resp 20 12/05/20 12:21 BP 119/70 12/05/20 12:21 Pulse Ox 94 12/05/20 12:21 CV Function Including HR & BP: positive: Stable Pain Control: positive: Satisfactory Nausea & Vomiting: positive: Negative Mental Status: positive: Baseline Respiratory Status: Airway Patent Hydration Status: Satisfactory Anesthesia Complications: positive: None
--- NOTE | 2020-12-05 13:28 | XRAY Report ---
PROCEDURE: Post Port Placement 1V CXR INDICATIONS: post op mediport TECHNIQUE: One view of the chest was acquired. COMPARISON: None FINDINGS: Surgical changes and devices: Left chest wall Port-A-Cath tip is in SVC.. Lungs and pleura: No pleural effusions or pneumothorax. Lungs are clear. Mediastinum: Mediastinal contours appear normal. Heart size is mildly enlarged. Bones and chest wall: No suspicious bony lesions. Overlying soft tissues appear unremarkable. IMPRESSION: Left chest wall Port-A-Cath tip is in SVC. Cardiomegaly. No focal infiltrate or pneumothorax. Reviewed by: Jose Holm MD on 12/05/2020 1:27 PM PST Approved by: Jose Holm MD on 12/05/2020 1:27 PM PST Station ID: [id number]
--- NOTE | 2020-12-05 16:50 | XRAY Report ---
PROCEDURE: OR Port-A-Cath INDICATIONS: PORT PLACEMENT TECHNIQUE: Intraoperative fluoroscopic images are provided for evaluation. COMPARISON: None. FINDINGS: Intraoperative images demonstrate a left sided Port-A-Cath with distal tip projecting over the mid SV C. It is noted that the entire length of the tubing is not included within [id number]. IMPRESSION: Intraoperative port placement images as above. Reviewed by: Anita Hsieh MD on 12/05/2020 4:49 PM PST Approved by: Anita Hsieh MD on 12/05/2020 4:49 PM PST Station ID: [id number]
== END 2020-12-05 07:57 | disposition home or self-care (01) ==
LOC: SDS 07:56
PROVIDERS: ATTEND Surgery
DX: R16.0 Hepatomegaly, not elsewhere classified (principal); R59.0 Localized enlarged lymph nodes; I10 Essential (primary) hypertension; Z87.891 Personal history of nicotine dependence; Z20.822 Contact with and (suspected) exposure to COVID-19; E66.9 Obesity, unspecified; Z68.32 Body mass index [BMI] 32.0-32.9, adult
CPT/HCPCS: 36561; 71045; C1788; J0690; J7120

== ENCOUNTER 2020-12-12 08:00 | Outpatient (CLI) | payer MEDICARE, OTHER ==
[2020-12-12 10:15] LABS: BASOPHILS # (AUTO) 0.1 10^3/uL (0.0-0.1); BASOPHILS % (AUTO) 0.9 %; EOSINOPHILS # (AUTO) 0.1 10^3/uL (0.0-0.7); EOSINOPHILS % (AUTO) 0.8 %; HGB - HEMOGLOBIN 13.1 g/dL (14.0-18.0); LYMPHOCYTES % (AUTO) 11.8 %; MEAN CORPUSCULAR HEMOGLOBIN 29.6 pg (27.0-31.0); MEAN CORPUSCULAR HGB CONC 33.1 g/dL (32.0-36.0); MEAN CORPUSCULAR VOLUME 89.6 fL (80.0-94.0); MONOCYTES % (AUTO) 11.8 %; NEUTROPHILS # (AUTO) 6.3 10^3/uL (1.5-6.6); NEUTROPHILS % (AUTO) 73.3 %; PLT - PLATELET COUNT 154 10^3/uL (130-450); RED BLOOD COUNT 4.42 10^6/uL (4.70-6.10); RED CELL DISTRIBUTION WIDTH 14.2 % (12.0-15.0); WHITE BLOOD COUNT 8.6 x10^3/uL (4.8-10.8)
[2020-12-12 10:28] LABS: PLATELET ESTIMATE, MANUAL NORMAL (130-450,000) (NORMAL); PLATELET MORPHOLOGY NORMAL APPEARANCE (NORMAL); RBC MORPHOLOGY (MULTIPLE) NORMAL APPEARANCE (NORMAL)
[2020-12-12 10:41] LABS: ALBUMIN 3.8 g/dL (3.2-5.5); ALBUMIN/GLOBULIN RATIO 1.2 (1.0-2.2); BILIRUBIN,TOTAL 1.7 mg/dL (0.2-1.0); CREATININE 1.2 mg/dL (0.6-1.2); URIC ACID 10.4 mg/dL (2.6-7.2)
[2020-12-12 10:52] LABS: CALCIUM 12.3 mg/dL (8.5-10.3)
[2020-12-13 10:37] LABS: HEPATITIS B SURFACE ANTIGEN NON-REACTIVE (NON-REACTIVE)
[2020-12-13 12:07] LABS: HEPATITIS C ANTIBODY NON-REACTIVE (NON-REACTIVE)
[2020-12-13 15:12] LABS: HIV AG/AB 4TH GEN NON-REACTIVE (NON-REACTIVE)
== END 2020-12-12 23:59 | disposition home or self-care (01) ==
LOC: LAB 08:00
PROVIDERS: ATTEND Internal Medicine Hematology & Oncology
DX: C83.30 Diffuse large B-cell lymphoma, unspecified site (principal)
CPT/HCPCS: 36415; 80053; 83615; 84550; 85025; 86317; 86704; 86803; 87340; G0475; 81599; 87389

== ENCOUNTER 2020-12-12 10:39 | Emergency (ER) | payer MEDICARE, OTHER ==
[2020-12-12] MEDS ORDERED: FOLIC ACID INJ 1 MG, THIAMINE INJ 100 MG, MAGNESIUM SULFATE 2 GM in SODIUM CHLORIDE 0.9... IV STA (11:37)
[2020-12-12] MEDS: FOLIC ACID INJ 1 MG, THIAMINE INJ 100 MG, MAGNESIUM SULFATE 2 GM, MULTIVITAMIN 10 ML in... IV STA ×10 (11:55→11:59)
--- NOTE | 2020-12-12 11:56 | ED Physician Documentation ---
History of Present Illness - Stated complaint Stated Complaint: DEHYDRATION SENT BY - Chief complaint Chief Complaint: Abd Pain - History obtained from History obtained from: Patient, Family - History of Present Illness Timing: How many weeks ago (2) - Additonal information Additional information: 65-year-old male with an abdominal cancer that is now been diagnosed as non- Hodgkin's lymphoma has some difficulty with passing food and fluids now. He has been vomiting and he is dehydrated. We have a call from the patient's oncologist at the [facility] with [facility] that he has had his laboratory studies drawn this morning appears dehydrated and she is requesting hydration. The patient is very much in agreement with this states he feels pret ty crummy and lightheaded and dizzy feels dehydrated. He is expecting to get treatment started very soon. He has had a port placed last week Review of Systems Constitutional: denies: Fever Eyes: denies: Decreased vision Ears: denies: Ear pain Nose: denies: Rhinorrhea / runny nose, Congestion Throat: denies: Sore throat Cardiac: denies: Chest pain / pressure, Palpitations Respiratory: reports: Dyspnea. denies: Cough GI: reports: Abdominal Swelling, Nausea, Vomiting. denies: Abdominal Pain : denies: Dysuria, Frequency Skin: denies: Rash Musculoskeletal: denies: Neck pain, Back pain, Extremity pain Neurologic: reports: Generalized weakness. denies: Focal weakness, Numbness PD PAST MEDICAL HISTORY - Past Medical History Past Medical History: Yes Cardiovascular: Hypertension, High cholesterol Respiratory: None Neuro: None Endocrine/Autoimmune: None GI: Colon polyps, Other : None HEENT: None Psych: None Musculoskeletal: Osteoarthritis, Chronic back pain Derm: Psoriasis, Rosacea Other Past Medical History: lymphoma - Past Surgical History Past Surgical History: Yes General: Colonoscopy, EGD, Other Ortho: Rotator cuff repair, Spine surgery Cardiovascular: Other HEENT: Tonsil/Adenoidectomy - Present Medications Home Medications: Ambulatory Orders Medication Instructions Recorded Confirmed amLODIPine [Norvasc] 10 mg PO BID 05/28/17 12/05/20 Losartan [Cozaar] 50 mg PO DAILY 11/13/20 12/05/20 Ondansetron Odt [Zofran] 4 mg TL Q6H PRN #10 tablet 11/13/20 12/05/20 Oxycodone HCl [Oxaydo] 5 mg PO Q4HR 12/02/20 12/05/20 - Allergies Allergies/Adverse Reactions: Allergies Allergy/AdvReac Type Severity Reaction Status Date / Time lisinopril Allergy Edema Verified 12/12/20 10:54 - Social History Does the pt smoke?: No Smoking Status: Never smoker PD ED PE NORMAL - Vitals Vital signs reviewed: Yes (Tachycardic and hypertensive) - General General: Alert and oriented X 3, No acute distress, Well developed/nourished - HEENT HEENT: Atraumatic, PERRL, EOMI - Neck Neck: Supple, no meningeal sign, No bony TTP - Cardiac Cardiac: No murmur, Other (Tacky to 110) - Respiratory Respiratory: No respiratory distress, Clear bilaterally - Abdomen Abdomen: Soft, Non distended, Other (Mild generalized tenderness without guarding or rebound no specificity) - Back Back: No CVA TTP, No spinal TTP - Derm Derm: Normal color, Warm and dry, No rash - Extremities Extremities: No deformity, No edema - Neuro Neuro: Alert and oriented X 3, child care coordinator 2-12 intact, No motor deficit, No sensory deficit, Normal speech Eye Opening: Spontaneous Motor: Obeys Commands Verbal: Oriented GCS Score: 15 - Psych Psych: Normal mood, Normal affect Results - Vitals Vitals: Vital Signs - 24 hr 12/12/20 10:51 Temperature 36.4 C L Heart Rate 125 H Respiratory 16 Rate Blood Pressure 112/90 H O2 Saturation 95 Oxygen O2 Source Room air - Labs Labs: Laboratory Tests 12/12/20 10:00 Lipase 18 L PD MEDICAL DECISION MAKING - ED course Complexity details: reviewed old records, reviewed results, re-evaluated patient, considered differential, d/w patient ED course: 65-year-old male with a recently diagnosed non-Hodgkin's lymphoma in the intestine is dehydrated no longer able to process food and fluid and his disease is advancing. His oncologist Dr. Villalobos from the [facility] has called us today requesting hydration. She is able to review his lab studies and calls us back after review of his labs and requests we send the patient down to [facility] for admission to start treatment. He is given saline with thiamine (we have run out of multivit vials) and arrangements are made to transfer the patient to [facility]. Departure - Departure Disposition: 02 Transfer Acute Care Hosp Clinical Impression: Dehydration
[2020-12-12 13:25] LABS: GLUCOSE, URINE (UA) NEGATIVE (NEGATIVE); KETONES,URINE (UA) 15 mg/dL (NEGATIVE); LEUKOCYTE ESTERASE, URINE NEGATIVE (NEGATIVE); NITRITE,URINE NEGATIVE (NEGATIVE); OCCULT BLOOD,URINE NEGATIVE (NEGATIVE); PROTEIN,URINE 100 mg/dL (NEGATIVE); UROBILINOGEN,URINE 0.2 (NORMAL) E.U./dL (NORMAL)
[2020-12-12 13:31] LABS: CLARITY,URINE CLEAR (CLEAR)
[2020-12-12 13:32] LABS: BACTERIA,URINE None Seen /HPF (None Seen); BILIRUBIN,URINE NEGATIVE (NEGATIVE); CASTS, URINE 0-2 Hyaline Casts /LPF; ICTOTEST,URINE NEGATIVE; RBC,URINE 0-5 /HPF (0-5); SQUAMOUS EPITHELIAL CELL,UR RARE Squamous (<= Few)
[2020-12-12 13:46] LABS: C. PNEUMONIAE- RESP PCR PANEL NOT DETECTED
[2020-12-12] MEDS ORDERED: ONDANSETRON 4 MG/2 ML VIAL IVP STA (16:50)
[2020-12-12] MEDS ORDERED: ONDANSETRON 4 MG/2 ML VIAL ONE (16:56)
[2020-12-12 17:08] VITALS: BP 126/86
== END 2020-12-12 17:13 | disposition short-term general hospital (02) ==
LOC: ED 10:39
DX: E86.0 Dehydration (principal); C85.99 Non-Hodgkin lymphoma, unspecified, extranodal and solid organ sites; Z20.822 Contact with and (suspected) exposure to COVID-19; I10 Essential (primary) hypertension
CPT/HCPCS: 81001; 83690; 87631; 96365; 96375; 99283; 99285; J3411; 0202U; 80053; 81003; 85025; 87086

== ENCOUNTER 2020-12-12 17:13 | Outpatient (CLI) | payer MEDICARE, OTHER | END 2020-12-12 17:14 | disposition short-term general hospital (02) | LOC: EMS 17:13 | PROVIDERS: ATTEND Surgery | DX: E86.0 Dehydration (principal); C85.90 Non-Hodgkin lymphoma, unspecified, unspecified site | CPT/HCPCS: A0425; A0426 ==

== ENCOUNTER → 2021-01-03 10:22 | Emergency (ER) | payer MEDICARE, OTHER | END | disposition left against medical advice (07) | LOC: ED 10:22 | DX: Z53.21 Procedure and treatment not carried out due to patient leaving prior to being seen by health care provider (principal) ==

== ENCOUNTER 2021-02-11 08:00 | Outpatient (CLI) | payer MEDICARE, OTHER | END 2021-02-11 23:59 | disposition home or self-care (01) | LOC: LAB.R 08:00 | PROVIDERS: ATTEND Internal Medicine | DX: R76.8 Other specified abnormal immunological findings in serum (principal) | CPT/HCPCS: 86707; 87350 ==

== ENCOUNTER 2021-10-09 09:53 | Day surgery (SDC) | payer MEDICARE, OTHER ==
[~2021-10-09 09:53] MED LIST: CYCLOPENTOLATE 1% OPHTH DROPS 2 ML ONE; KETOROLAC 0.45% OPHTH DROPS ONE; PHENYLEPHRINE 2.5% OPHTH 2 ML DROPS ONE; PROPARACAINE 0.5% OPHTH DROPS 15 ML ONE
[2021-10-09] MEDS ORDERED: LACTATED RINGERS 1,000 ML IV ONE ×2 (10:20→11:14)
[2021-10-09] MEDS ORDERED: MIDAZOLAM 2 MG/2 ML VIAL ONE (10:37)
[2021-10-09] MEDS ORDERED: METOCLOPRAMIDE 10 MG/2 ML VIAL IVP PRN (10:55)
[2021-10-09] MEDS ORDERED: ePHEDrine 50 MG/ML VIAL IVP PRN (10:55)
[2021-10-09] MEDS ORDERED: NALOXONE 0.4 MG/ML VIAL IVP PRN (10:55)
[2021-10-09] MEDS ORDERED: fentaNYL 100 MCG/2 ML VIAL IVP PRN (10:55)
[2021-10-09] MEDS ORDERED: ONDANSETRON 4 MG/2 ML VIAL IVP PRN (10:55)
[2021-10-09] MEDS ORDERED: ATROPINE ABBOJECT 1 MG/10 ML SYRINGE IVP PRN (10:55)
[2021-10-09] MEDS ORDERED: HYDROmorphone 0.5 MG/0.5 ML SYRINGE IVP PRN (10:55)
[2021-10-09] MEDS ORDERED: MORPHINE 2 MG/ML CARPUJECT IVP PRN (10:55)
--- NOTE | 2021-10-09 10:55 | ANESTHESIA ---
Pre-Anesthesia VS, & Labs - Diagnosis right eye cataract - Procedure right eye CATIOL Vital Signs: Temp Pulse Resp BP Pulse Ox 36.5 C 78 16 155/99 H 96 10/09/21 10:11 10/09/21 10:11 10/09/21 10:11 10/09/21 10:11 10/09/21 10:11 Height: 6 ft 1 in Weight (kg): 103.2 kg Body Mass Index: 29.9 BMI Classification: Overweight - NPO >8 hours - Lab Results Lab results reviewed: Yes Home Medications and Allergies amLODIPine [Norvasc] 10 mg PO BID 05/28/17 Losartan [Cozaar] 50 mg PO DAILY 11/13/20 Duloxetine HCl [Cymbalta] 60 mg PO DAILY 12/20/20 Rosuvastatin Calcium [Crestor] 10 mg PO DAILY 12/20/20 hydroCHLOROthiazide [Hydrochlorothiazide] 12.5 mg PO DAILY 12/20/20 Allergies/Adverse Reactions: Allergies Allergy/AdvReac Type Severity Reaction Status Date / Time lisinopril Allergy Edema Verified 06/06/21 13:25 Anes History & Medical History - Anesthetic History Anesthesia Complications: reports: No previous complications Family history of Anesthesia Complications: Denies Family history of Malignant Hyperthermia: Denies - Medical History Cardiovascular: reports: Hypertension, High cholesterol Pulmonary: reports: None Gastrointestinal: reports: Colon polyps, Other Urinary: reports: None Neuro: reports: None Musculoskeletal: reports: Osteoarthritis, Chronic back pain Endocrine/Autoimmune: reports: None Blood Disorders: reports: None Skin: reports: Psoriasis, Rosacea Smoking Status: Former smoker - Surgical History General: reports: Colonoscopy, EGD, Other Eyes Ears Nose Throat (EENT): reports: Cataracts, Tonsil/Adenoidectomy Cardiothoracic: reports: Other Orthopedic: reports: Rotator cuff repair, Spine surgery Exam General: Alert, Oriented x3, Cooperative, No acute distress Dental: WNL Mouth Openin Fingerbreadth Neck Mobility: Normal Mallampati classification: II Respiratory: Lungs clear, Normal breath sounds, No respiratory distress, No accessory muscle use Plan Anesthesia Type: MAC Consent for Procedure(s) Verified and Reviewed: Yes Code Status: Attempt Resuscitation ASA classification: 2-Mild systemic disease Is this case an emergency?: No
[2021-10-09] MEDS ORDERED: EPINEPHrine 1 MG/ML AMP IR ONE (11:00)
[2021-10-09] MEDS ORDERED: BRIMONIDINE 0.2% OPHTH DROPS 5 ML OPTH ONE (11:00)
[2021-10-09] MEDS ORDERED: TIMOLOL 0.5% OPHTH DROPS OPTH ONE (11:00)
[2021-10-09] MEDS ORDERED: PROPARACAINE 0.5% OPHTH DROPS 15 ML EACHEYE ONE (11:00)
[2021-10-09] MEDS ORDERED: BSS/LIDOCAINE/EPINEPHRINE 1 ML SYRINGE IO ONE (11:00)
[2021-10-09] MEDS ORDERED: TRIAMCIN/MOXIFLOX OPHTHALMIC 0.6 ML VIAL IO ONE ×2 (11:00→12:09)
[2021-10-09] MEDS ORDERED: LACTATED RINGERS 1,000 ML IV SCH (11:00)
[2021-10-09] MEDS ORDERED: VANCOMYCIN OPHTHALMI 8MG/0.8ML 8 MG/0.8 ML SYRINGE IO ONE ×2 (11:00→12:09)
--- NOTE | 2021-10-09 11:22 | ANESTHESIA POST OP EVALUATION ---
Anesthesia Post Eval - Post Anesthesia Eval Vitals: Last Vital Signs Temp 36.6 C 10/09/21 11:15 Pulse 88 10/09/21 11:15 Resp 12 10/09/21 11:15 BP 152/84 H 10/09/21 11:15 Pulse Ox 99 10/09/21 11:15 CV Function Including HR & BP: Stable Pain Control: Satisfactory Nausea & Vomiting: Negative Mental Status: Baseline Respiratory Status: Airway Patent Hydration Status: Satisfactory Anesthesia Complications: None
[2021-10-09 11:28] VITALS: BP 147/96
[2021-10-09] MEDS ORDERED: BRIMONIDINE 0.2% OPHTH DROPS 5 ML ONE (12:09)
[2021-10-09] MEDS ORDERED: EPINEPHrine 1 MG/ML AMP ONE (12:09)
[2021-10-09] MEDS ORDERED: BSS/LIDOCAINE/EPINEPHRINE 1 ML SYRINGE ONE (12:09)
[2021-10-09] MEDS ORDERED: TIMOLOL 0.5% OPHTH DROPS ONE (12:09)
== END 2021-10-09 09:54 | disposition home or self-care (01) ==
LOC: SDS 09:53
PROVIDERS: ATTEND Ophthalmology
DX: H25.11 Age-related nuclear cataract, right eye (principal); Z98.42 Cataract extraction status, left eye; Z87.891 Personal history of nicotine dependence
CPT/HCPCS: 66984; A9270; J3490; J7120

== ENCOUNTER 2022-04-09 07:31 | Outpatient (CLI) | payer MEDICARE, OTHER ==
[2022-04-09 08:07] LABS: BASOPHILS # (AUTO) 0.1 10^3/uL (0.0-0.1); BASOPHILS % (AUTO) 0.7 %; EOSINOPHILS # (AUTO) 0.4 10^3/uL (0.0-0.7); EOSINOPHILS % (AUTO) 4.8 %; HCT - HEMATOCRIT 42.4 % (42.0-52.0); LYMPHOCYTES # (AUTO) 1.2 10^3/uL (1.5-3.5); LYMPHOCYTES % (AUTO) 16.5 %; MEAN CORPUSCULAR HEMOGLOBIN 32.5 pg (27.0-31.0); MEAN CORPUSCULAR VOLUME 98.4 fL (80.0-94.0); MEAN PLATELET VOLUME 9.8 fL (7.4-11.4); MONOCYTES # (AUTO) 0.7 10^3/uL (0.0-1.0); MONOCYTES % (AUTO) 9.7 %; NEUTROPHILS # (AUTO) 4.9 10^3/uL (1.5-6.6); PLT - PLATELET COUNT 208 10^3/uL (130-450); RED BLOOD COUNT 4.31 10^6/uL (4.70-6.10); RED CELL DISTRIBUTION WIDTH 13.4 % (12.0-15.0); WHITE BLOOD COUNT 7.2 x10^3/uL (4.8-10.8)
[2022-04-09 08:13] LABS: ALBUMIN 4.5 g/dL (3.2-5.5); ALBUMIN/GLOBULIN RATIO 1.7 (1.0-2.2); ALKALINE PHOSPHATASE 70 IU/L (42-121); ALT ALANINE AMINOTRANSFERASE 20 IU/L (10-60); AST ASPARTATE AMINOTRANSFERASE 21 IU/L (10-42); BILIRUBIN,TOTAL 1.7 mg/dL (0.2-1.0); BUN - BLOOD UREA NITROGEN 17 mg/dL (6-20); CALCIUM 9.9 mg/dL (8.5-10.3); CARBON DIOXIDE - CO2 22 mmol/L (21-32); CHLORIDE 106 mmol/L (101-111); CHOL/HDL RATIO 3.8 (<5.0); CHOLESTEROL 210 mg/dL; CREATININE 1.1 mg/dL (0.6-1.2); GFR - MDRD 67 (>89); GLUCOSE 112 mg/dL (70-100); HDL CHOLESTEROL 56 mg/dL; LDL CHOLESTEROL,CALCULATED 130 mg/dL; LDL/HDL RATIO 2.3 (<3.6); POTASSIUM 3.9 mmol/L (3.5-5.0); SODIUM 139 mmol/L (135-145); TOTAL PROTEIN 7.2 g/dL (6.7-8.2); TRIGLYCERIDES 121 mg/dL; VLDL CHOLESTEROL 24 mg/dL
[2022-04-09 08:24] LABS: THYROID STIMULATING HORMONE 2.62 uIU/mL (0.34-5.60)
== END 2022-04-09 07:32 | disposition home or self-care (01) ==
LOC: LAB 07:31
PROVIDERS: ATTEND Nurse Practitioner Family
DX: I10 Essential (primary) hypertension (principal); E78.00 Pure hypercholesterolemia, unspecified; Z12.5 Encounter for screening for malignant neoplasm of prostate
CPT/HCPCS: 36415; 80053; 80061; 84443; 85025; G0103; 83721; 84153

== ENCOUNTER 2022-10-01 07:15 | Day surgery (SDC) | payer MEDICARE, OTHER ==
[2022-10-01] MEDS ORDERED: PROPOFOL 200 MG/20 ML VIAL IVP ONE (07:33)
[2022-10-01] MEDS ORDERED: PROPOFOL 500 MG/50 ML 500 MG/50 ML VIAL ONE (07:33)
[2022-10-01] MEDS ORDERED: LACTATED RINGERS 1,000 ML IV ONE (07:35)
--- NOTE | 2022-10-01 07:53 | ANESTHESIA ---
Pre-Anesthesia VS, & Labs - Diagnosis HISTORY OF COLON POLYP - Procedure COLONOSCOPY Vital Signs: Temp Pulse Resp BP Pulse Ox O2 Flow Rate 36.6 C 97 16 139/95 H 95 10/01/22 07:33 10/01/22 07:33 10/01/22 07:33 10/01/22 07:33 10/01/22 07:33 Height: 6 ft 1 in Weight (kg): 106.7 kg Body Mass Index: 31.0 BMI Classification: Obese - NPO >8 hours Home Medications and Allergies amLODIPine [Norvasc] 10 mg PO BID 05/28/17 Losartan [Cozaar] 50 mg PO DAILY 11/13/20 Duloxetine HCl [Cymbalta] 60 mg PO DAILY 12/20/20 Rosuvastatin Calcium [Crestor] 10 mg PO DAILY 12/20/20 hydroCHLOROthiazide [Hydrochlorothiazide] 12.5 mg PO DAILY 12/20/20 Allergies/Adverse Reactions: Allergies Allergy/AdvReac Type Severity Reaction Status Date / Time lisinopril Allergy Edema Verified 06/06/21 13:25 Anes History & Medical History - Anesthetic History Anesthesia Complications: reports: No previous complications Family history of Anesthesia Complications: Denies Family history of Malignant Hyperthermia: Denies - Medical History Cardiovascular: reports: Hypertension, High cholesterol Pulmonary: reports: None Gastrointestinal: reports: Colon polyps, Other (CHRONIC ELEVALTED BILIRUBIN) Urinary: reports: None Neuro: reports: None Musculoskeletal: reports: Osteoarthritis, Chronic back pain Endocrine/Autoimmune: reports: None Blood Disorders: reports: None Skin: reports: Psoriasis, Rosacea Smoking Status: Former smoker Psychosocial: reports: No issues indicated History of Cancer?: Yes - Surgical History General: reports: Colonoscopy Eyes Ears Nose Throat (EENT): reports: Cataracts Cardiothoracic: reports: Other Orthopedic: reports: Shoulder arthroplasty, Other Exam General: Alert, Oriented x3, Cooperative, No acute distress Dental: WNL Mouth Openin Fingerbreadth Neck Mobility: Reduced Mallampati classification: I Respiratory: Lungs clear Cardiovascular: Regular rate Mental/Cognitive Status: Alert/Oriented X3, Normal for patient Cognitive Status: Within normal limits Plan Anesthesia Type: General, Total IV Consent for Procedure(s) Verified and Reviewed: Yes Code Status: Attempt Resuscitation ASA classification: 2-Mild systemic disease Is this case an emergency?: No
[2022-10-01] MEDS ORDERED: MIDAZOLAM 2 MG/2 ML VIAL ONE (07:57)
[2022-10-01] MEDS ORDERED: LACTATED RINGERS 700 ML IV ONE (08:49)
[2022-10-01 09:15] VITALS: BP 121/89
--- NOTE | 2022-10-01 10:06 | ANESTHESIA POST OP EVALUATION ---
Anesthesia Post Eval - Post Anesthesia Eval Vitals: Last Vital Signs Temp 36.5 C 10/01/22 09:12 Pulse 79 10/01/22 09:12 Resp 16 10/01/22 09:12 BP 121/89 H 10/01/22 09:12 Pulse Ox 98 10/01/22 09:12 O2 Flow Rate CV Function Including HR & BP: Stable Pain Control: Satisfactory Nausea & Vomiting: Negative Mental Status: Baseline Respiratory Status: Airway Patent Hydration Status: Satisfactory Anesthesia Complications: None
== END 2022-10-01 07:16 | disposition home or self-care (01) ==
LOC: SDS 07:15
PROVIDERS: ATTEND Surgery
PROC: 0DBM8ZZ Excision of Descending Colon, Via Natural or Artificial Opening Endoscopic (ICD-10-PCS; 2022-10-01)
PROC: 0DBL8ZZ Excision of Transverse Colon, Via Natural or Artificial Opening Endoscopic (ICD-10-PCS; principal; 2022-10-01 08:30)
DX: Z12.11 Encounter for screening for malignant neoplasm of colon (principal); D12.3 Benign neoplasm of transverse colon; D12.4 Benign neoplasm of descending colon; Z85.72 Personal history of non-Hodgkin lymphomas
CPT/HCPCS: 45380; J7120

== ENCOUNTER 2023-08-06 06:59 | Outpatient (CLI) | payer MEDICARE, OTHER ==
[2023-08-06 07:27] LABS: BASOPHILS # (AUTO) 0.1 10^3/uL (0.0-0.1); BASOPHILS % (AUTO) 0.8 %; EOSINOPHILS # (AUTO) 0.4 10^3/uL (0.0-0.7); EOSINOPHILS % (AUTO) 4.8 %; HCT - HEMATOCRIT 44.5 % (42.0-52.0); LYMPHOCYTES # (AUTO) 1.5 10^3/uL (1.5-3.5); LYMPHOCYTES % (AUTO) 19.2 %; MEAN CORPUSCULAR HEMOGLOBIN 32.4 pg (27.0-31.0); MEAN CORPUSCULAR HGB CONC 33.7 g/dL (32.0-36.0); MEAN CORPUSCULAR VOLUME 96.1 fL (80.0-94.0); MEAN PLATELET VOLUME 9.9 fL (7.4-11.4); MONOCYTES # (AUTO) 0.8 10^3/uL (0.0-1.0); MONOCYTES % (AUTO) 10.1 %; NEUTROPHILS % (AUTO) 64.7 %; PLT - PLATELET COUNT 203 10^3/uL (130-450); RED BLOOD COUNT 4.63 10^6/uL (4.70-6.10); RED CELL DISTRIBUTION WIDTH 13.1 % (12.0-15.0); WHITE BLOOD COUNT 7.8 x10^3/uL (4.8-10.8)
[2023-08-06 07:41] LABS: ALBUMIN 4.6 g/dL (3.2-5.5); ALKALINE PHOSPHATASE 69 IU/L (42-121); ALT ALANINE AMINOTRANSFERASE 16 IU/L (10-60); AST ASPARTATE AMINOTRANSFERASE 22 IU/L (10-42); BILIRUBIN,TOTAL 1.9 mg/dL (0.2-1.0); BUN - BLOOD UREA NITROGEN 24 mg/dL (6-20); CALCIUM 10.1 mg/dL (8.5-10.3); CARBON DIOXIDE - CO2 28 mmol/L (21-32); CHLORIDE 103 mmol/L (101-111); CHOL/HDL RATIO 2.7 (<5.0); CHOLESTEROL 159 mg/dL; CREATININE 1.3 mg/dL (0.6-1.3); GFR - MDRD 55 (>89); GLUCOSE 105 mg/dL (74-104); HDL CHOLESTEROL 59 mg/dL; LDL CHOLESTEROL,CALCULATED 76 mg/dL; LDL/HDL RATIO 1.3 (<3.6); POTASSIUM 4.2 mmol/L (3.5-4.5); SODIUM 139 mmol/L (135-145); TOTAL PROTEIN 6.9 g/dL (6.4-8.9); TRIGLYCERIDES 120 mg/dL (48-352); VLDL CHOLESTEROL 24 mg/dL
[2023-08-06 07:57] LABS: THYROID STIMULATING HORMONE 3.39 uIU/mL (0.34-5.60)
== END 2023-08-06 07:00 | disposition home or self-care (01) ==
LOC: LAB 06:59
PROVIDERS: ATTEND Nurse Practitioner Family
DX: C85.90 Non-Hodgkin lymphoma, unspecified, unspecified site (principal); R73.01 Impaired fasting glucose; I10 Essential (primary) hypertension; E78.00 Pure hypercholesterolemia, unspecified; E66.9 Obesity, unspecified; Z12.5 Encounter for screening for malignant neoplasm of prostate
CPT/HCPCS: 36415; 80053; 80061; 84443; 85025; G0103; 83721; 84153